=== PATIENT | male | born 1965 | race Caucasian/White ===

== ENCOUNTER → 2019-09-04 | Outpatient (CLI) | payer BC, OTHER ==
[~2019-09-04] MED LIST: ACETAMINOPHEN325 M1 PO; ALBUTEROL INH; ASPIRIN325; IBUPROFEN 200200 M1 PO; LEVOTHROID75 MCG PO; LUCIDEX100 MG PO; MICRONASE5 MG PO; MULTIVITAMINS; NIACIN 100MG T100 M1 PO; PRILOSEC; VITAMIN E400 UNIT PO; ZOCOR 20 MG TAB20 M1 PO
== END ==
LOC: MRI 11:14
DX: I69.393 Ataxia following cerebral infarction (principal)

== ENCOUNTER → 2019-09-04 | Outpatient (CLI) | payer BC, OTHER ==
[2019-09-04 16:02] LABS: CREATININE 1.3 mg/dL (0.7-1.3)
== END ==
LOC: MRI 15:11
PROVIDERS: Neuromusculoskeletal Medicine & OMM
DX: K76.0 Fatty (change of) liver, not elsewhere classified (principal); N28.1 Cyst of kidney, acquired; I25.10 Atherosclerotic heart disease of native coronary artery without angina pectoris; N42.89 Other specified disorders of prostate